=== PATIENT | female | born 1955 | race Caucasian/White ===

== ENCOUNTER 2017-06-14 23:33 | Emergency (ER) | payer BC ==
[2017-06-14 23:45] VITALS: BP 151/99
--- NOTE | 2017-06-15 01:25 | EDM.PDOC ---
ED HPI GENERAL MEDICAL PROBLEM - General Chief Complaint: General Stated Complaint: WANTS PICK LINE CHECKED OUT Time Seen by Provider: 06/14/17 23:45 - History of Present Illness INITIAL COMMENTS - FREE TEXT/NARRATIVE: 8-year-old female presents emergency room to have her PICC line evaluated. The patient had her last infusion around 8:00 this evening and noticed swelling at the port site. She does not have discomfort in the area no pain she has not noticed any fevers or chills. She does notice a sense of fullness in the area and looks to be swollen compared to the other side. Earlier today the patient's PICC line was manipulated in some way of lab today had difficulty withdrawing blood from it. However it seemed to confuse well. This PICC line is been in for 3 weeks perhaps a little longer the patient recently had back surgery complicated with infection and she's getting daily Cubicin therapy. - Related Data Allergies Allergy/AdvReac Type Severity Reaction Status Date / Time codeine Allergy Shortness Verified 05/31/17 13:14 of Breath morphine Allergy Tachycardia Verified 05/31/17 13:14 naproxen [From Aleve] Allergy Cannot Verified 05/31/17 13:14 Remember Sulfa (Sulfonamide Allergy Cannot Verified 05/31/17 13:14 Antibiotics) Remember Home Meds: Home Meds Hydrochlorothiazide [Hydrochlorothiazide] 1 tab PO DAILY 05/31/17 [History] Hydrocodone/Acetaminophen [Hydrocodon-Acetaminophen 5-325] 1 tab PO ASDIRECTED PRN 05/31/17 [History] Levothyroxine [Levothyroxine] 150 mcg PO DAILY 05/31/17 [History] DAPTOmycin [Cubicin] 500 mg IV Q24H 06/14/17 [History] Losartan [Cozaar] 50 mg PO DAILY 06/14/17 [History] Past Medical History HEENT History: Reports: Impaired Vision 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 , , Spontaneous Musculoskeletal History: Reports: RA Endocrine/Metabolic History: Reports: Hypothyroidism, Obesity/BMI 30+ - Past Surgical History GI Surgical History: Reports: Appendectomy, Cholecystectomy Female Surgical History: Reports: Section, Hysterectomy, Tubal Ligation Social & Family History - Family History Family Medical History: Noncontributory - Tobacco Use Smoking Status *Q: Never Smoker - Caffeine Use Caffeine Use: Reports: Coffee - Recreational Drug Use Recreational Drug Use: No ED ROS GENERAL - Review of Systems Review Of Systems: See Below Constitutional: Reports: No Symptoms HEENT: Reports: No Symptoms Respiratory: Reports: No Symptoms Cardiovascular: Reports: No Symptoms GI/Abdominal: Reports: No Symptoms ED EXAM, GENERAL - Physical Exam Exam: See Below Exam Limited By: No Limitations General Appearance: Alert, No Apparent Distress Respiratory/Chest: No Respiratory Distress, Lungs Clear, Normal Breath Sounds Cardiovascular: Regular Rate, Rhythm, No Edema, No Murmur Extremities: Other (Examination of the PICC line site shows no erythema or warmth however she does have some swelling compared to the other side) Course - Vital Signs Last Recorded V/S: Last Vital Signs Temp 36.3 C 06/14/17 23:42 Pulse 82 06/14/17 23:42 Resp 18 06/14/17 23:42 BP 151/99 H 06/14/17 23:42 Pulse Ox 99 06/14/17 23:42 - Re-Assessments/Exams Free Text/Narrative Re-Assessment/Exam: 06/15/17 01:23 This overall situation seems a little unusual. Apparently the PICC clean may have been withdrawn several millimeters much less than a quarter of an inch while they attempted to drop blood out of it. This does not seem like enough motion to dislodge anything. We don't have the resources or the staff to investigate at this point I did discuss it with the warehouse laborer at [facility] where the catheter was put in and ultimately discussed with the ER physician. Their recommendation is discuss it with an interventional radiology first thing in the morning before the catheter seized again. We will do this I have discussed this with the patient and she is okay with this. Departure - Departure Time of Disposition: 01:25 Disposition: Home, Self-Care 01 Clinical Impression: PICC line infiltration - Discharge Information Referrals: Anne Allen, NOTE TELLER [Primary Care Provider] - Additional Instructions: Return to the emergency room with any questions or problems. You should hear from me before 7 AM after have a chance to discuss this with interventional radiology at [facility] in [place]. Do not use the PICC line until you hear back from me or this issue has been resolved.
== END 2017-06-15 01:30 | disposition home or self-care (01) ==
LOC: JD.ED 23:33
DX: T82.49XA Other complication of vascular dialysis catheter, initial encounter (principal); E03.9 Hypothyroidism, unspecified; E66.9 Obesity, unspecified; Z88.5 Allergy status to narcotic agent; Z88.2 Allergy status to sulfonamides; Z79.899 Other long term (current) drug therapy; Z90.49 Acquired absence of other specified parts of digestive tract; Z90.710 Acquired absence of both cervix and uterus; Z68.39 Body mass index [BMI] 39.0-39.9, adult; Z45.2 Encounter for adjustment and management of vascular access device
CPT/HCPCS: 71010; 71010-26; 99283; 99284

== ENCOUNTER 2018-02-23 11:24 | Emergency (ER) | payer BC ==
[2018-02-23 11:34] VITALS: BP 153/79
[2018-02-23] MEDS ORDERED: Sodium Chloride 0.9% 10 ML Syringe FLUSH PRN (11:55)
--- NOTE | 2018-02-23 12:03 | EDM.PDOC ---
ED HPI GENERAL MEDICAL PROBLEM - General Chief Complaint: Lower Extremity Injury/Pain Stated Complaint: RIGHT LEG PAIN/SWELLING Time Seen by Provider: 02/23/18 11:46 Source of Information: Reports: Patient History Limitations: Reports: No Limitations - History of Present Illness INITIAL COMMENTS - FREE TEXT/NARRATIVE: Patient is a 62 female who presents to the ED complaining of right lower leg pain with increased redness, mild swelling, and increased warmth. Patient states symptoms started approximately 2 weeks ago and has progressively gotten worse. States as recent developed pain posteriorly which is abnormal. She does have a history lymphedema secondary to knee injury requiring multiple surgeries. She has had surgery on the right ankle and foot as well. She has had total knee replacement as well as fusion of the ankle and foot. She is concerned she may have cellulitis and also possible DVT. She has a history of blood clot to the left upper extremity in 1997 from a bug bite. This required multiple surgeries. She was on Coumadin for a period of time. she felt slightly feverish. There's been no documented fever. She denies any nausea vomiting, fever, redness streaking up her leg, chest pain, shortness of breath, sensory changes, abdominal pain, or inability to walk in the affected extremity. Right Lower Leg Pain Score (Numeric/FACES): 2 - Related Data Allergies Allergy/AdvReac Type Severity Reaction Status Date / Time codeine Allergy Shortness Verified 05/31/17 13:14 of Breath morphine Allergy Tachycardia Verified 05/31/17 13:14 naproxen [From Aleve] Allergy Cannot Verified 05/31/17 13:14 Remember Sulfa (Sulfonamide Allergy Cannot Verified 05/31/17 13:14 Antibiotics) Remember Home Meds: Home Meds Hydrochlorothiazide 1 tab PO DAILY 05/31/17 [History] Levothyroxine 125 mcg PO DAILY 05/31/17 [History] Losartan [Cozaar] 50 mg PO DAILY 06/14/17 [History] Etanercept [Enbrel] 50 mg PO WEEKLY 02/23/18 [History] Leflunomide 20 mg PO ASDIRECTED 02/23/18 [History] Past Medical History HEENT History: Reports: Impaired Vision Cardiovascular History: Reports: Blood Clots/VTE/DVT, Hypertension 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 , , Spontaneous Musculoskeletal History: Reports: RA Endocrine/Metabolic History: Reports: Hypothyroidism, Obesity/BMI 30+ Dermatologic History: Reports: Other (See Below) Other Dermatologic History: lymphedema RLE - Past Surgical History GI Surgical History: Reports: Appendectomy, Cholecystectomy Female Surgical History: Reports: Section, Hysterectomy, Tubal Ligation Social & Family History - Family History Family Medical History: Noncontributory - Tobacco Use Smoking Status *Q: Never Smoker - Caffeine Use Caffeine Use: Reports: Coffee - Recreational Drug Use Recreational Drug Use: No Review of Systems - Review of Systems Review Of Systems: ROS reveals no pertinent complaints other than HPI. ED EXAM, GENERAL - Physical Exam Exam: See Below Exam Limited By: No Limitations General Appearance: Alert, WD/WN, No Apparent Distress Ears: Hearing Grossly Normal Nose: Normal Inspection Throat/Mouth: Normal Voice, No Airway Compromise Neck: Normal Inspection, Supple Respiratory/Chest: No Respiratory Distress, Lungs Clear, Normal Breath Sounds, No Accessory Muscle Use, Chest Non-Tender Cardiovascular: Normal Peripheral Pulses, Regular Rate, Rhythm, No Murmur ( Obvious) Peripheral Pulses: 2+: Posterior Tibial (R) GI/Abdominal: Normal Bowel Sounds, Soft, Non-Tender, No Organomegaly, No Distention Extremities: Other (With edema noted to the right lower leg with multiple old surgical scars to the right knee and right ankle. Swelling to the patient is unchanged. Small little wounds to the anterior aspect of the leg with redness extending anterior lateral/medial and posteriorly. Pain with palpation of the posterior aspect of the lower leg. Increased warmth noted. No palpable cord noted.) Neurological: Alert, Oriented, CN II-XII Intact, Normal Cognition, No Motor/ Sensory Deficits Psychiatric: Normal Affect, Normal Mood Course - Vital Signs Last Recorded V/S: Last Vital Signs Temp 98.0 F 02/23/18 11:30 Pulse 104 H 02/23/18 11:30 Resp 16 02/23/18 11:30 BP 153/79 H 02/23/18 11:30 Pulse Ox 97 02/23/18 11:30 - Orders/Labs/Meds Orders: Active Orders 24 hr Category Date Time Status Peripheral IV Care [RC] . DIRECTED Care 02/23/18 11:55 Active Peripheral IV Insertion Adult [OM.PC] Routine Oth 02/23/18 11:55 Ordered Labs: Laboratory Tests 05/27/18 05/27/18 Range/Units 12:20 12:20 WBC 5.83 (3.98-10.04) K/mm3 RBC 4.71 (3.98-5.22) M/mm3 Hgb 13.6 (11.2-15.7) gm/L Hct 41.8 (34.1-44.9) % MCV 88.7 (79.4-94.8) fl MCH 28.9 (25.6-32.2) pg MCHC 32.5 (32.2-35.5) g/dl RDW Std Deviation 47.6 H (36.4-46.3) fL Plt Count 286 (182-369) K/mm3 MPV 10.3 (9.4-12.3) fl Neutrophils % (Manual) 53 (40-60) % Band Neutrophils % 0 (0-10) % Lymphocytes % (Manual) 29 (20-40) % Atypical Lymphs % 0 % Monocytes % (Manual) 13 H (2-10) % Eosinophils % (Manual) 4 (0.7-5.8) % Basophils % (Manual) 1 (0.1-1.2) Platelet Estimate Adequate Plt Morphology Comment Normal RBC Morph Comment Normal Sodium 145 (136-145) mEq/L Potassium 3.4 L (3.5-5.1) mEq/L Chloride 106 (98-107) mEq/L Carbon Dioxide 27 (21-32) mEq/L Anion Gap 15.4 H (5-15) BUN 11 (7-18) mg/dL Creatinine 0.8 (0.55-1.02) mg/dL Est Cr Clr Drug Dosing 59.15 mL/min Estimated GFR (MDRD) > 60 (>60) mL/min BUN/Creatinine Ratio 13.8 L (14-18) Glucose 104 (74-106) mg/dL Calcium 9.9 (8.5-10.1) mg/dL Total Bilirubin 0.5 (0.2-1.0) mg/dL AST 47 H (15-37) U/L ALT 67 H (14-59) U/L Alkaline Phosphatase 127 H (46-116) U/L C-Reactive Protein 4.9 H* (<1.0) mg/dL Total Protein 7.2 (6.4-8.2) g/dl Albumin 3.6 (3.4-5.0) g/dl Globulin 3.6 gm/dL Albumin/Globulin Ratio 1.0 (1-2) Meds: Medications Discontinued Medications Generic Name Dose Route Start Last Admin Trade Name Rafael PRN Reason Stop Dose Admin Cefazolin Sodium 1 gm 02/23/18 13:29 02/23/18 13:39 Ancef IM 02/23/18 13:30 1 gm ONETIME ONE Administration Cephalexin 500 mg 02/23/18 13:29 02/23/18 13:39 Keflex PO 02/23/18 13:30 500 mg ONETIME ONE Administration Sodium Chloride 10 ml 02/23/18 11:55 02/23/18 12:06 Saline Flush FLUSH 0.01 ml ASDIRECTED PRN Administration Keep Vein Open - Re-Assessments/Exams Free Text/Narrative Re-Assessment/Exam: Vital signs stable. IV established. Initial labs and studies include CBC, chem 14, CRP, and coag studies. Will order ultrasound of the right lower leg. Labs reviewed: Sodium 145, potassium mildly low at 3.4, creatinine 0.8, AST 47, ALT 67, alk phosphatase 127, CRP is 4.9, CBC essentially normal. Ultrasound of the right lower extremity impression: Normal right lower extremity duplex venous ultrasound. Patient has no history of MRSA and/or recurrent skin infections. Ordered Ancef 1 g IM and keflex 500mg PO. We'll discharge patient on Keflex. Cause of localized skin infection is related to excessive scratching of the lower extremity. She was instructed not do this. She has history of RA and is on two DMARD medications. Increasing risk developing worsening symptoms. At this point do not believe she requires admission with normal CBC and afrebrile with admission. Discharge instructions as documented. The patient remained hemodynamically stable while under my care in the E.D. I discussed the concerning symptoms for which to returnto the E.D. with the patient/family. The patient/family verbalized understanding. All questions were answered. Departure - Departure Time of Disposition: 13:27 Disposition: Home, Self-Care 01 Condition: Good Clinical Impression: Cellulitis of right lower extremity, Hypokalemia, Elevated LFTs - Discharge Information Instructions: Cellulitis, Adult, Liver Function Tests, Hypokalemia, Potassium Content of Foods Referrals: Anne Allen TRANSLATIONAL SPECIALIST [Primary Care Provider] - Forms: ED Department Discharge Additional Instructions: Take the full course of Keflex as prescribed. Elevate when able to reduce any swelling. Apply warm compresses to the affected area as needed. May take Tylenol and ibuprofen as needed for discomfort. Please follow up with her primary care provider this coming week for reevaluation. Refrain from scratching the affected area causing increased risk of developing infection. Liver enzyme tests were mildly elevated along with potassium is mildly low. Please follow up with your primary care provider to discuss retesting of labs. Follow the instructions for potassium replacement via foods and or liquids. - My Orders Last 24 Hours: My Active Orders 02/23/18 11:55 Peripheral IV Care [RC] . DIRECTED Peripheral IV Insertion Adult [OM.PC] Routine - Assessment/Plan Last 24 Hours: My Active Orders 02/23/18 11:55 Peripheral IV Care [RC] . DIRECTED Peripheral IV Insertion Adult [OM.PC] Routine
[2018-02-23] MEDS ORDERED: Cephalexin 500 MG Cap PO ONE (13:29)
[2018-02-23] MEDS ORDERED: ceFAZolin 1 GM Vial IM ONE (13:29)
--- NOTE | 2018-02-24 08:35 | US ---
Right lower extremity deep venous ultrasound: Duplex and color flow imaging was obtained of the right common femoral, superficial femoral, popliteal, posterior tibial and peroneal veins. Left common femoral vein was also evaluated. Comparison: No prior venous exam. Findings: Soft tissue edema seen within the right calf. Normal phasic flow, augmentation and compression are seen. Impression: 1. Soft tissue edema within the calf. 2. No evidence of deep venous thrombosis is seen within the right lower extremity or within the left common femoral vein. Diagnostic code #2 I agree with preliminary report issued by [facility] ([facility] preliminary report dictated on 02/23/18, 2:07 PM Central Time)
== END 2018-02-23 13:45 | disposition home or self-care (01) ==
LOC: JD.ED 11:24
DX: L03.115 Cellulitis of right lower limb (principal); I10 Essential (primary) hypertension; R79.89 Other specified abnormal findings of blood chemistry; E03.9 Hypothyroidism, unspecified; E66.9 Obesity, unspecified; Z90.49 Acquired absence of other specified parts of digestive tract; E87.6 Hypokalemia; Z88.5 Allergy status to narcotic agent; Z88.2 Allergy status to sulfonamides; Z79.899 Other long term (current) drug therapy; Z68.41 Body mass index [BMI] 40.0-44.9, adult
CPT/HCPCS: 36415; 80053; 85007; 85027; 86140; 93971; 96372; 99284; A9270; J0690; J7050

== ENCOUNTER → 2023-05-23 | Day surgery (SDC) | payer MEDICARE, BC ==
[~2023-05-23] MED LIST: Lactated Ringers 1,000 ML IV SCH; Lidocaine 1% 6 ML ONE; Propofol 200 MG/20 ML SDV ONE; Sodium Chloride 0.9% 10 ML Syringe FLUSH PRN; Sodium Chloride 0.9% 10 ML Syringe FLUSH SCH; fentaNYL 100 MCG/2 ML SDV ONE
[2023-05-23 14:05] VITALS: BP 113/68; PULSE 68
== END | disposition home or self-care (01) ==
LOC: JD.SDS 09:51
PROVIDERS: ATTEND Surgery
DX: K59.00 Constipation, unspecified (principal); T50.995A Adverse effect of other drugs, medicaments and biological substances, initial encounter; Q43.8 Other specified congenital malformations of intestine; I10 Essential (primary) hypertension; E03.9 Hypothyroidism, unspecified; M06.9 Rheumatoid arthritis, unspecified; Z88.5 Allergy status to narcotic agent; Z88.2 Allergy status to sulfonamides; Z88.8 Allergy status to other drugs, medicaments and biological substances; Z80.0 Family history of malignant neoplasm of digestive organs; Z79.82 Long term (current) use of aspirin; Z79.890 Hormone replacement therapy; Z79.899 Other long term (current) drug therapy
CPT/HCPCS: 45378; J2704; J3010; J7120; 00812; J3490

== ENCOUNTER 2023-09-28 00:03 | Emergency (ER) | payer MEDICARE, BC ==
[2023-09-28 00:18] VITALS: BP 155/94; PULSE 97
[2023-09-28] MEDS ORDERED: Orphenadrine 60 MG/2 ML Inj IM ONE (02:05)
[2023-09-28] MEDS ORDERED: Ketorolac 30 MG/ML SDV IM ONE (02:05)
[2023-09-28] MEDS ORDERED: Acetaminophen 325 MG Tab PO ONE (02:05)
[2023-09-28] MEDS ORDERED: Sodium Chloride 0.9% 10 ML Syringe FLUSH PRN (03:05)
[2023-09-28 03:36] LABS: BASOPHILS ABSOLUTE AUTO 0.1 K/mm3 (0.0-0.2); BASOPHILS PERCENT AUTO 1.7 % (0.0-1.0); EOSINOPHILS ABSOLUTE AUTO 0.1 K/mm3 (0.0-0.4); EOSINOPHILS PERCENT AUTO 1.6 % (0.0-6.0); HEMATOCRIT 39.3 % (37.0-47.0); HEMOGLOBIN 13.5 gm/dl (12.0-16.0); IMMATURE GRAN ABSOLUTE AUTO 0.02 K/mm3 (0.00-0.05); IMMATURE GRAN PERCENT AUTO 0.3 % (0.0-0.4); LYMPHOCYTES ABSOLUTE AUTO 2.1 K/mm3 (1.0-4.8); LYMPHOCYTES PERCENT AUTO 27.4 % (24.0-44.0); MEAN CORPUSCULAR HEMOGLOBIN 30.3 pg (28.0-32.0); MEAN CORPUSCULAR HGB CONC 34.4 g/dl (32.0-36.0); MEAN CORPUSCULAR VOLUME 88.3 fl (83.0-99.0); MEAN PLATELET VOLUME 10.1 fl (9.4-12.3); MONOCYTES ABSOLUTE AUTO 0.8 K/mm3 (0.0-0.8); MONOCYTES PERCENT AUTO 10.2 % (0.0-8.0); NEUTROPHILS ABSOLUTE AUTO 4.5 K/mm3 (1.8-7.7); NEUTROPHILS PERCENT AUTO 58.8 % (41.0-71.0); PLATELET COUNT,PLT 332 K/mm3 (150-400); RED BLOOD CELL COUNT 4.45 M/mm3 (4.10-5.30); WHITE BLOOD CELL COUNT,WBC 7.66 K/mm3 (3.9-11.3)
[2023-09-28 04:02] LABS: ALANINE AMINOTRANSFERASE,ALT 33 U/L (14-59); ALBUMIN 3.5 g/dl (3.4-5.0); ALKALINE PHOSPHATASE 99 U/L (46-116); ANION GAP 13.8 (5-15); BILIRUBIN TOTAL 0.7 mg/dL (0.2-1.0); BLOOD UREA NITROGEN,BUN 15 mg/dL (7-18); BUN/CREATININE RATIO 16.7 (14-18); CALCIUM 10.5 mg/dL (8.5-10.1); CARBON DIOXIDE,CO2 24 mEq/L (21-32); CHLORIDE,CL 103 mEq/L (98-107); CREATININE 0.9 mg/dL (0.55-1.02); ESTIMATED GFR 71 mL/min (>60); GLUCOSE RANDOM 118 mg/dL (70-99); PROTEIN TOTAL,TP 7.1 g/dl (6.4-8.2); SODIUM,NA 137 mEq/L (136-145); TROPONIN I HIGH SENSITIVITY 8 pg/mL (<=51)
[2023-09-28 04:05] LABS: ASPARTATE AMNIOTRANSFERASE,AST 37 U/L (15-37); POTASSIUM,K 3.8 mEq/L (3.5-5.1)
[2023-09-28] MEDS ORDERED: LORazepam 2 MG/ML SDV IVPUSH ONE (04:32)
[2023-09-28] MEDS ORDERED: traMADol 50 MG Tab PO ONE (04:32)
== END 2023-09-28 05:33 | disposition home or self-care (01) ==
LOC: JD.ED 00:03
DX: M25.512 Pain in left shoulder (principal); I10 Essential (primary) hypertension; E03.9 Hypothyroidism, unspecified; Z79.82 Long term (current) use of aspirin; Z88.2 Allergy status to sulfonamides; Z88.5 Allergy status to narcotic agent; Z88.6 Allergy status to analgesic agent; Z79.899 Other long term (current) drug therapy; Z90.49 Acquired absence of other specified parts of digestive tract; Z90.710 Acquired absence of both cervix and uterus
CPT/HCPCS: 36415; 71045; 80053; 84484; 85025; 85379; 93005; 96372; 96374; 99284; A9270; J1885; J2060; J2360

== ENCOUNTER 2023-10-01 09:16 | Emergency (ER) | payer MEDICARE, BC ==
[2023-10-01] MEDS ORDERED: HYDROmorphone 1 MG/ML Syringe IVPUSH ONE (10:08)
[2023-10-01] MEDS ORDERED: Metoclopramide 10 MG/2 ML SDV IVPUSH ONE ×2 (10:08→15:40)
[2023-10-01] MEDS ORDERED: Dexamethasone 10 MG/ML SDV IVPUSH ONE (10:09)
[2023-10-01] MEDS ORDERED: Gabapentin 100 MG Cap PO ONE (10:09)
[2023-10-01] MEDS ORDERED: Dextrose 5%-0.9% NaCl 1,000 ML IV SCH (10:15)
[2023-10-01] MEDS ORDERED: HYDROmorphone 0.5 MG/0.5 ML Syringe IVPUSH ONE ×3 (11:02→15:39)
[2023-10-01 16:59] VITALS: BP 156/91; PULSE 76
== END 2023-10-01 16:56 | disposition home or self-care (01) ==
LOC: JD.ED 09:16
DX: M50.122 Cervical disc disorder at C5-C6 level with radiculopathy (principal); E03.9 Hypothyroidism, unspecified; E66.9 Obesity, unspecified; I10 Essential (primary) hypertension; M19.90 Unspecified osteoarthritis, unspecified site; Z79.82 Long term (current) use of aspirin; Z79.899 Other long term (current) drug therapy; Z88.5 Allergy status to narcotic agent; Z88.2 Allergy status to sulfonamides; Z88.8 Allergy status to other drugs, medicaments and biological substances
CPT/HCPCS: 72141; 96361; 96374; 96375; 96376; 99283; A9270; J1100; J1170; J2765; J7042

== ENCOUNTER 2024-11-18 07:34 | Day surgery (SDC) | payer MEDICARE, BC ==
[~2024-11-18 07:34] MED LIST changes: -Lactated Ringers 1,000 ML IV SCH; -Lidocaine 1% 6 ML ONE; -Propofol 200 MG/20 ML SDV ONE; +Tranexamic Acid 1,000 MG/10 ML Vial ONE; +VANCOmycin 1 GM SDV ONE; -fentaNYL 100 MCG/2 ML SDV ONE
[2024-11-18] MEDS: Lactated Ringers 1,000 ML IV SCH (07:45)
[2024-11-18] MEDS: Acetaminophen 325 MG Tab PO ONE ×2 (09:00→15:16)
[2024-11-18] MEDS: Pregabalin 25 MG Cap PO ONE (09:00)
[2024-11-18] MEDS: oxyCODONE ER 10 MG TAB.ER PO ONE (09:01)
[2024-11-18] MEDS ORDERED: Propofol 200 MG/20 ML SDV ONE ×3 (09:12→10:27)
[2024-11-18] MEDS ORDERED: fentaNYL 100 MCG/2 ML SDV ONE (09:13)
[2024-11-18] MEDS ORDERED: ceFAZolin 2 GM Vial ONE (09:14)
[2024-11-18] MEDS: Tranexamic Acid 1,000 MG/10 ML Vial ONE (10:44)
[2024-11-18] MEDS: VANCOmycin 1 GM SDV ONE (10:44)
[2024-11-18] MEDS: Morphine 8 MG, EPINEPHrine 0.3 MG, Cefuroxime 750 MG, Sodium Chloride 0.9% 7.9 ML PRN (10:45)
[2024-11-18] MEDS ORDERED: fentaNYL 100 MCG/2 ML SDV IVPUSH PRN (11:16)
[2024-11-18] MEDS: oxyCODONE 5 MG Tab PO PRN (13:28)
[2024-11-18 13:32] VITALS: BP 128/82; PULSE 78
[2024-11-18] MEDS: Ondansetron 4 MG/2 ML SDV IVPUSH PRN (14:17)
[2024-11-18] MEDS: HYDROmorphone 0.5 MG/0.5 ML Syringe IVPUSH PRN (15:25)
== END 2024-11-18 16:15 | disposition home or self-care (01) ==
LOC: JD.SDS 07:34
PROVIDERS: ATTEND Orthopaedic Surgery
DX: M16.11 Unilateral primary osteoarthritis, right hip (principal); I10 Essential (primary) hypertension; E03.9 Hypothyroidism, unspecified; Z88.8 Allergy status to other drugs, medicaments and biological substances; Z88.5 Allergy status to narcotic agent; Z88.2 Allergy status to sulfonamides; Z91.030 Bee allergy status; Z79.82 Long term (current) use of aspirin; Z79.899 Other long term (current) drug therapy; Z79.890 Hormone replacement therapy
CPT/HCPCS: 0055T; 27130; 73501; 97116; 97161; 97530; A9270; C1713; C1776; J0171; J0690; J0697; J2272; J2405; J2704; J3010; J7120; J3490

== ENCOUNTER 2025-01-01 09:23 | Inpatient (IN) | payer MEDICARE, BC ==
[2025-01-01] MEDS: fentaNYL 100 MCG/2 ML SDV IVPUSH ONE ×2 (11:22→11:53)
[2025-01-01] MEDS: fentaNYL 100 MCG/2 ML SDV ONE (11:31)
[2025-01-01] MEDS: Iopamidol 612 MG/ML 100 ML Bottle IVPUSH ONE (11:40)
[2025-01-01] MEDS: Sodium Chloride 0.9% 10 ML Syringe FLUSH ONE (11:40)
[2025-01-01] MEDS ORDERED: Naloxone 0.4 MG/ML SDV IVPUSH PRN ×2 (11:49→13:01)
[2025-01-01 12:39] LABS: BASOPHILS ABSOLUTE AUTO 0.1 K/mm3 (0.0-0.2); HEMATOCRIT 36.3 % (37.0-47.0); HEMOGLOBIN 12.1 gm/dl (12.0-16.0); IMMATURE GRAN ABSOLUTE AUTO 0.05 K/mm3 (0.00-0.05); LYMPHOCYTES ABSOLUTE AUTO 1.2 K/mm3 (1.0-4.8); MEAN CORPUSCULAR HEMOGLOBIN 29.4 pg (28.0-32.0); MEAN CORPUSCULAR HGB CONC 33.3 g/dl (32.0-36.0); MEAN CORPUSCULAR VOLUME 88.3 fl (83.0-99.0); MONOCYTES ABSOLUTE AUTO 1.4 K/mm3 (0.0-0.8); PLATELET COUNT,PLT 253 K/mm3 (150-400); RED BLOOD CELL COUNT 4.11 M/mm3 (4.10-5.30); WHITE BLOOD CELL COUNT,WBC 14.47 K/mm3 (3.9-11.3)
[2025-01-01 13:07] LABS: A/G RATIO 0.9 (1-2); ALBUMIN 2.8 g/dl (3.4-5.0); ANION GAP 14.1 (5-15); BILIRUBIN TOTAL 1.4 mg/dL (0.2-1.0); BUN/CREATININE RATIO 15.6 (14-18); C-REACTIVE PROTEIN 17.93 mg/dL (<0.30); CALCIUM 8.9 mg/dL (8.5-10.1); CREATININE 0.9 mg/dL (0.55-1.02); EST CRCL DRUG DOSING (CG) 47.97 mL/min; POTASSIUM,K 3.1 mEq/L (3.5-5.1); PROTEIN TOTAL,TP 6.1 g/dl (6.4-8.2)
[2025-01-01] MEDS: HYDROmorphone 0.5 MG/0.5 ML Syringe IVPUSH ONE ×2 (13:08→17:01)
[2025-01-01] MEDS: Sodium Chloride 0.9% 1,000 ML IV SCH (13:08)
[2025-01-01 13:10] LABS: LACTIC ACID 1.8 mmol/L (0.4-2.0)
[2025-01-01 13:30] LABS: EOSINOPHILS PERCENT AUTO 0.9 % (0.0-6.0); LYMPHOCYTES PERCENT AUTO 7.7 % (24.0-44.0); MONOCYTES PERCENT AUTO 9.7 % (0.0-8.0); NEUTROPHILS PERCENT AUTO 80.4 % (41.0-71.0)
[2025-01-01 13:31] LABS: BASOPHILS PERCENT AUTO 0.7 % (0.0-1.0); IMMATURE GRAN PERCENT AUTO 0.6 % (0.0-0.4)
[2025-01-01 13:32] LABS: NEUTROPHILS ABSOLUTE AUTO 11.7 K/mm3 (1.8-7.7)
[2025-01-01 13:33] LABS: EOSINOPHILS ABSOLUTE AUTO 0.1 K/mm3 (0.0-0.4); SLIDE REVIEW NORMAL SMEAR
[2025-01-01 14:58] LABS: BODY FLUID TYPE SYNOVIAL FLUID; PROTEIN,BODY FLUID 3.4 gm/dl
[2025-01-01 15:50] LABS: APPEARANCE,URINE CLEAR (Clear); BILIRUBIN,URINE 1+ (Negative); COLOR,URINE AMBER (Yellow); GLUCOSE,URINE NEGATIVE (Negative); KETONES,URINE 3+ (Negative); LEUKOCYTE ESTERASE,URINE NEGATIVE (Negative); NITRITE,URINE NEGATIVE (Negative); OCCULT BLOOD,URINE NEGATIVE (Negative); PROTEIN,URINE 2+ (Negative); UROBILINOGEN,URINE 0.2 (0.2-1.0)
[2025-01-01 16:09] LABS: RBC,URINE 0-5 /hpf (0-5); SQUAMOUS EPITHELIAL CELLS,UR 0-5 /hpf (0-5); WBC,URINE 0-5 /hpf (0-5)
[2025-01-01 16:10] LABS: BACTERIA,URINE FEW /hpf (FEW); MUCUS,URINE FEW /hpf (FEW)
[2025-01-01] MEDS: oxyCODONE 5 MG Tab PO PRN ×2 (16:10→22:18)
[2025-01-01 16:28] LABS: APPEARANCE,BODY FLUID CLOUDY; COLOR,BODY FLUID AMBER; SITE,BODY FLUID LEFT HIP; VOLUME BODY FLUID 20 ML
[2025-01-01 16:30] LABS: MONONUCLEAR, BODY FLUID 21.9 % (0.0-0.0)
[2025-01-01 16:31] LABS: POLYMORPHONUCLEAR, BODY FLUID 78.1 % (0.0-0.0)
[2025-01-01] MEDS: HYDROmorphone 0.5 MG/0.5 ML Syringe IVPUSH PRN (16:40)
[2025-01-01 16:44] LABS: WBC BODY FLUID 13220 /uL (0-0)
[2025-01-01 16:45] LABS: RBC,BODY FLUID 14000 /uL (0-0)
[2025-01-01] MEDS: Potassium Chloride 20 MEQ Tab.ER PO ONE (18:01)
[2025-01-01] MEDS: predniSONE 10 MG Tab PO ONE (18:02)
[2025-01-01] MEDS: cefTRIAXone 2 GM Vial IVPUSH SCH (18:02)
[2025-01-01] MEDS: Gabapentin 300 MG Cap PO SCH (22:19)
[2025-01-02] MEDS: Pantoprazole 40 MG Tab.CR PO SCH (04:25)
[2025-01-02] MEDS: Sennosides/Docusate Sodium 50-8.6 MG Tab PO PRN (04:25)
[2025-01-02 05:37] LABS: BASOPHILS ABSOLUTE AUTO 0.1 K/mm3 (0.0-0.2); BASOPHILS PERCENT AUTO 0.3 % (0.0-1.0); EOSINOPHILS PERCENT AUTO 0.1 % (0.0-6.0); HEMATOCRIT 32.4 % (37.0-47.0); HEMOGLOBIN 10.8 gm/dl (12.0-16.0); IMMATURE GRAN ABSOLUTE AUTO 0.15 K/mm3 (0.00-0.05); IMMATURE GRAN PERCENT AUTO 0.9 % (0.0-0.4); LYMPHOCYTES ABSOLUTE AUTO 0.7 K/mm3 (1.0-4.8); MEAN CORPUSCULAR HEMOGLOBIN 29.5 pg (28.0-32.0); MEAN CORPUSCULAR HGB CONC 33.3 g/dl (32.0-36.0); MEAN CORPUSCULAR VOLUME 88.5 fl (83.0-99.0); MEAN PLATELET VOLUME 10.1 fl (9.4-12.3); MONOCYTES PERCENT AUTO 5.9 % (0.0-8.0); NEUTROPHILS ABSOLUTE AUTO 15.1 K/mm3 (1.8-7.7); NEUTROPHILS PERCENT AUTO 88.8 % (41.0-71.0); PLATELET COUNT,PLT 214 K/mm3 (150-400); RED BLOOD CELL COUNT 3.66 M/mm3 (4.10-5.30); WHITE BLOOD CELL COUNT,WBC 17.03 K/mm3 (3.9-11.3)
[2025-01-02 06:10] LABS: A/G RATIO 0.7 (1-2); ALBUMIN 2.3 g/dl (3.4-5.0); BILIRUBIN TOTAL 1.6 mg/dL (0.2-1.0); BUN/CREATININE RATIO 21.1 (14-18); C-REACTIVE PROTEIN 24.88 mg/dL (<0.30); CREATININE 0.9 mg/dL (0.55-1.02); EST CRCL DRUG DOSING (CG) 47.97 mL/min; MAGNESIUM 1.7 mg/dL (1.8-2.4); PHOSPHORUS 1.8 mg/dL (2.6-4.7); PROTEIN TOTAL,TP 5.8 g/dl (6.4-8.2); TSH 0.545 uIU/mL (0.358-3.74)
[2025-01-02 06:22] LABS: ANION GAP 9.3 (5-15)
[2025-01-02 06:23] LABS: POTASSIUM,K 4.3 mEq/L (3.5-5.1)
[2025-01-02] MEDS: Furosemide 20 MG Tab PO SCH (07:53)
[2025-01-02] MEDS: predniSONE 20 MG Tab PO SCH (07:53)
[2025-01-02] MEDS: Aspirin 81 MG Tab.EC PO SCH (07:53)
[2025-01-02] MEDS: Losartan 100 MG Tab PO SCH (07:53)
[2025-01-02] MEDS: Hydrochlorothiazide 25 MG Tab PO SCH (07:53)
[2025-01-02] MEDS: Levothyroxine 75 MCG Tab PO SCH (07:53)
[2025-01-02] MEDS: Enoxaparin 40 MG/0.4 ML Syringe SUBCUT SCH (07:54)
[2025-01-02] MEDS: Calcium Carbonate 600 MG Tab PO SCH (08:16)
[2025-01-02] MEDS: Magnesium Sulf/Wat 2 GM/50 mL 2 GM/50 ML BAG IV ONE (08:48)
[2025-01-02] MEDS: Hyaluronidase, Human Recomb. 150 Unit/ML Vial SUBCUT ONE (09:50)
[2025-01-02] MEDS: Sodium Phosphate 30 MMOLE in Sodium Chloride 0.9% 250 ML IV ONE ×2 (20:36→20:39)
[2025-01-03 07:57] LABS: BASOPHILS PERCENT AUTO 0.2 % (0.0-1.0); EOSINOPHILS PERCENT AUTO 0.1 % (0.0-6.0); HEMATOCRIT 38.7 % (37.0-47.0); IMMATURE GRAN ABSOLUTE AUTO 0.14 K/mm3 (0.00-0.05); IMMATURE GRAN PERCENT AUTO 0.9 % (0.0-0.4); LYMPHOCYTES ABSOLUTE AUTO 1.1 K/mm3 (1.0-4.8); LYMPHOCYTES PERCENT AUTO 7.2 % (24.0-44.0); MEAN CORPUSCULAR HGB CONC 32.3 g/dl (32.0-36.0); MEAN CORPUSCULAR VOLUME 89.8 fl (83.0-99.0); MEAN PLATELET VOLUME 10.3 fl (9.4-12.3); MONOCYTES ABSOLUTE AUTO 1.9 K/mm3 (0.0-0.8); MONOCYTES PERCENT AUTO 12.3 % (0.0-8.0); NEUTROPHILS PERCENT AUTO 79.3 % (41.0-71.0); RED BLOOD CELL COUNT 4.31 M/mm3 (4.10-5.30)
[2025-01-03 08:21] LABS: ANION GAP 10.8 (5-15); BUN/CREATININE RATIO 28.9 (14-18); C-REACTIVE PROTEIN 18.82 mg/dL (<0.30); CALCIUM 9.9 mg/dL (8.5-10.1); CREATININE 0.9 mg/dL (0.55-1.02); EST CRCL DRUG DOSING (CG) 47.97 mL/min; POTASSIUM,K 3.8 mEq/L (3.5-5.1)
[2025-01-03] MEDS: Sodium Phosphate 30 MMOLE in Sodium Chloride 0.9% 250 ML IV ONE (08:45)
[2025-01-03 08:47] LABS: HEMOGLOBIN 12.5 gm/dl (12.0-16.0)
[2025-01-03 08:48] LABS: PLATELET COUNT,PLT 304 K/mm3 (150-400)
[2025-01-03 08:56] LABS: SLIDE REVIEW ABNORMAL SMEAR
[2025-01-03 09:00] LABS: MAGNESIUM 1.8 mg/dL (1.8-2.4); PHOSPHORUS 1.8 mg/dL (2.6-4.7)
[2025-01-03] MEDS: Heparin Sodium 5,000 Units/ML Vial IVPUSH ONE ×2 (10:39→18:25)
[2025-01-03] MEDS: Heparin Sodium/D5W 250 ML IV SCH (10:41)
[2025-01-03] MEDS ORDERED: VANCOmycin 1.5 GM/300 ML 1.5 GM in Premix Bag 1 BAG IV SCH (12:00)
[2025-01-03] MEDS: Magnesium Sulfat/D5W 1GM/100ML 1 GM in Premix Bag 1 BAG IV ONE ×2 (13:36→13:37)
[2025-01-04 06:05] LABS: BASOPHILS ABSOLUTE AUTO 0.1 K/mm3 (0.0-0.2); BASOPHILS PERCENT AUTO 0.5 % (0.0-1.0); EOSINOPHILS PERCENT AUTO 0.2 % (0.0-6.0); HEMATOCRIT 37.8 % (37.0-47.0); HEMOGLOBIN 12.6 gm/dl (12.0-16.0); IMMATURE GRAN ABSOLUTE AUTO 0.23 K/mm3 (0.00-0.05); LYMPHOCYTES ABSOLUTE AUTO 1.5 K/mm3 (1.0-4.8); LYMPHOCYTES PERCENT AUTO 12.4 % (24.0-44.0); MEAN CORPUSCULAR HEMOGLOBIN 29.7 pg (28.0-32.0); MEAN CORPUSCULAR HGB CONC 33.3 g/dl (32.0-36.0); MEAN CORPUSCULAR VOLUME 89.2 fl (83.0-99.0); MEAN PLATELET VOLUME 10.1 fl (9.4-12.3); MONOCYTES ABSOLUTE AUTO 1.3 K/mm3 (0.0-0.8); MONOCYTES PERCENT AUTO 11.1 % (0.0-8.0); NEUTROPHILS ABSOLUTE AUTO 8.7 K/mm3 (1.8-7.7); NEUTROPHILS PERCENT AUTO 73.8 % (41.0-71.0); PLATELET COUNT,PLT 326 K/mm3 (150-400); RED BLOOD CELL COUNT 4.24 M/mm3 (4.10-5.30); WHITE BLOOD CELL COUNT,WBC 11.73 K/mm3 (3.9-11.3)
[2025-01-04 06:23] LABS: ANION GAP 7.7 (5-15); C-REACTIVE PROTEIN 9.75 mg/dL (<0.30); CREATININE 0.8 mg/dL (0.55-1.02); EST CRCL DRUG DOSING (CG) 53.97 mL/min; MAGNESIUM 1.8 mg/dL (1.8-2.4); POTASSIUM,K 3.7 mEq/L (3.5-5.1)
[2025-01-04] MEDS: Heparin Sodium 5,000 Units/ML Vial IVPUSH ONE ×2 (07:26→19:03)
[2025-01-04] MEDS: Apixaban 5 MG Tab PO SCH (19:59)
[2025-01-05] MEDS: Apixaban 5 MG Tab PO SCH (08:28)
[2025-01-05] MEDS: Cyclobenzaprine 10 MG Tab PO PRN (10:10)
[2025-01-05] MEDS: CERTOLIZUMAB PEGOL 400 MG/2 ML SQ SCH (20:11)
[2025-01-06 04:42] LABS: BASOPHILS ABSOLUTE AUTO 0.2 K/mm3 (0.0-0.2); BASOPHILS PERCENT AUTO 0.9 % (0.0-1.0); EOSINOPHILS ABSOLUTE AUTO 0.2 K/mm3 (0.0-0.4); EOSINOPHILS PERCENT AUTO 1.2 % (0.0-6.0); HEMATOCRIT 35.5 % (37.0-47.0); HEMOGLOBIN 11.7 gm/dl (12.0-16.0); IMMATURE GRAN PERCENT AUTO 12.9 % (0.0-0.4); LYMPHOCYTES ABSOLUTE AUTO 2.7 K/mm3 (1.0-4.8); LYMPHOCYTES PERCENT AUTO 16.7 % (24.0-44.0); MEAN CORPUSCULAR HEMOGLOBIN 29.3 pg (28.0-32.0); MEAN PLATELET VOLUME 10.5 fl (9.4-12.3); MONOCYTES ABSOLUTE AUTO 1.9 K/mm3 (0.0-0.8); MONOCYTES PERCENT AUTO 11.6 % (0.0-8.0); NEUTROPHILS ABSOLUTE AUTO 9.2 K/mm3 (1.8-7.7); NEUTROPHILS PERCENT AUTO 56.7 % (41.0-71.0); NRBC ABSOLUTE 0.02 (0.00-0.02); NRBC PERCENT 0.1 % (0.0-0.2); PLATELET COUNT,PLT 355 K/mm3 (150-400); RED BLOOD CELL COUNT 3.99 M/mm3 (4.10-5.30); WHITE BLOOD CELL COUNT,WBC 16.31 K/mm3 (3.9-11.3)
[2025-01-06 05:09] LABS: A/G RATIO 0.5 (1-2); ANION GAP 6.6 (5-15); BILIRUBIN TOTAL 0.6 mg/dL (0.2-1.0); BUN/CREATININE RATIO 24.3 (14-18); C-REACTIVE PROTEIN 9.23 mg/dL (<0.30); CALCIUM 9.5 mg/dL (8.5-10.1); CREATININE 0.7 mg/dL (0.55-1.02); EST CRCL DRUG DOSING (CG) 61.68 mL/min; MAGNESIUM 1.6 mg/dL (1.8-2.4); PHOSPHORUS 2.9 mg/dL (2.6-4.7); POTASSIUM,K 3.6 mEq/L (3.5-5.1); PROTEIN TOTAL,TP 5.8 g/dl (6.4-8.2)
[2025-01-06 05:53] LABS: SLIDE REVIEW ABNORMAL SMEAR
[2025-01-06] MEDS: Cholecalciferol (Vitamin D3) 5,000 UNIT Cap PO SCH (08:29)
[2025-01-06] MEDS: Diclofenac Sodium 1% Gel 100 GM Tube TOP SCH (12:20)
[2025-01-06] MEDS: Magnesium Sulf/Wat 2 GM/50 mL 2 GM in Premix Bag 1 BAG IV ONE (13:32)
[2025-01-07 04:36] LABS: BASOPHILS ABSOLUTE AUTO 0.2 K/mm3 (0.0-0.2); BASOPHILS PERCENT AUTO 0.9 % (0.0-1.0); EOSINOPHILS ABSOLUTE AUTO 0.3 K/mm3 (0.0-0.4); EOSINOPHILS PERCENT AUTO 1.6 % (0.0-6.0); HEMATOCRIT 33.4 % (37.0-47.0); HEMOGLOBIN 10.8 gm/dl (12.0-16.0); IMMATURE GRAN ABSOLUTE AUTO 2.78 K/mm3 (0.00-0.05); IMMATURE GRAN PERCENT AUTO 16.7 % (0.0-0.4); LYMPHOCYTES PERCENT AUTO 17.9 % (24.0-44.0); MEAN CORPUSCULAR HGB CONC 32.3 g/dl (32.0-36.0); MEAN CORPUSCULAR VOLUME 89.5 fl (83.0-99.0); MEAN PLATELET VOLUME 10.1 fl (9.4-12.3); MONOCYTES ABSOLUTE AUTO 1.6 K/mm3 (0.0-0.8); MONOCYTES PERCENT AUTO 9.5 % (0.0-8.0); NEUTROPHILS ABSOLUTE AUTO 8.9 K/mm3 (1.8-7.7); NEUTROPHILS PERCENT AUTO 53.4 % (41.0-71.0); NRBC ABSOLUTE 0.03 (0.00-0.02); NRBC PERCENT 0.2 % (0.0-0.2); PLATELET COUNT,PLT 389 K/mm3 (150-400); RED BLOOD CELL COUNT 3.73 M/mm3 (4.10-5.30); WHITE BLOOD CELL COUNT,WBC 16.67 K/mm3 (3.9-11.3)
[2025-01-07] MEDS: HYDROmorphone 1 MG/ML Syringe IVPUSH PRN (04:57)
[2025-01-07 05:38] LABS: A/G RATIO 0.5 (1-2); ALBUMIN 1.9 g/dl (3.4-5.0); ANION GAP 7.8 (5-15); BILIRUBIN TOTAL 0.6 mg/dL (0.2-1.0); BUN/CREATININE RATIO 27.1 (14-18); C-REACTIVE PROTEIN 8.68 mg/dL (<0.30); CALCIUM 9.4 mg/dL (8.5-10.1); CREATININE 0.7 mg/dL (0.55-1.02); EST CRCL DRUG DOSING (CG) 61.68 mL/min; MAGNESIUM 1.9 mg/dL (1.8-2.4); POTASSIUM,K 4.8 mEq/L (3.5-5.1); PROTEIN TOTAL,TP 5.6 g/dl (6.4-8.2)
[2025-01-07 06:44] LABS: SLIDE REVIEW ABNORMAL SMEAR
[2025-01-07] MEDS: Calcium Carbonate 500 MG Tab.Chew PO ONE (18:04)
[2025-01-08 04:42] LABS: BASOPHILS ABSOLUTE AUTO 0.1 K/mm3 (0.0-0.2); BASOPHILS PERCENT AUTO 0.4 % (0.0-1.0); EOSINOPHILS ABSOLUTE AUTO 0.6 K/mm3 (0.0-0.4); EOSINOPHILS PERCENT AUTO 3.6 % (0.0-6.0); HEMATOCRIT 37.3 % (37.0-47.0); HEMOGLOBIN 12.1 gm/dl (12.0-16.0); IMMATURE GRAN ABSOLUTE AUTO 3.27 K/mm3 (0.00-0.05); IMMATURE GRAN PERCENT AUTO 19.7 % (0.0-0.4); LYMPHOCYTES ABSOLUTE AUTO 1.8 K/mm3 (1.0-4.8); LYMPHOCYTES PERCENT AUTO 10.8 % (24.0-44.0); MEAN CORPUSCULAR HGB CONC 32.4 g/dl (32.0-36.0); MEAN CORPUSCULAR VOLUME 89.4 fl (83.0-99.0); MEAN PLATELET VOLUME 10.1 fl (9.4-12.3); MONOCYTES ABSOLUTE AUTO 1.4 K/mm3 (0.0-0.8); MONOCYTES PERCENT AUTO 8.1 % (0.0-8.0); NEUTROPHILS ABSOLUTE AUTO 9.5 K/mm3 (1.8-7.7); NEUTROPHILS PERCENT AUTO 57.4 % (41.0-71.0); NRBC ABSOLUTE 0.03 (0.00-0.02); NRBC PERCENT 0.2 % (0.0-0.2); PLATELET COUNT,PLT 482 K/mm3 (150-400); RED BLOOD CELL COUNT 4.17 M/mm3 (4.10-5.30)
[2025-01-08] MEDS: Levothyroxine 75 MCG Tab PO SCH (05:16)
[2025-01-08 05:31] LABS: A/G RATIO 0.6 (1-2); ALBUMIN 2.2 g/dl (3.4-5.0); ANION GAP 9.5 (5-15); BILIRUBIN TOTAL 0.7 mg/dL (0.2-1.0); C-REACTIVE PROTEIN 10.33 mg/dL (<0.30); CALCIUM 9.5 mg/dL (8.5-10.1); EST CRCL DRUG DOSING (CG) 43.18 mL/min; MAGNESIUM 1.7 mg/dL (1.8-2.4); POTASSIUM,K 4.5 mEq/L (3.5-5.1); PROTEIN TOTAL,TP 6.2 g/dl (6.4-8.2)
[2025-01-08 06:46] LABS: SLIDE REVIEW ABNORMAL SMEAR
[2025-01-08] MEDS: Pantoprazole 40 MG Tab.CR PO SCH (08:00)
[2025-01-08] MEDS: Magnesium Oxide 400 MG Tab PO ONE (14:16)
[2025-01-08 14:56] VITALS: BP 131/67; PULSE 91
[2025-01-08] MEDS ORDERED: Cephalexin 500 MG Cap PO SCH (18:00)
[2025-01-09] MEDS ORDERED: Magnesium Oxide 400 MG Tab PO SCH (09:00)
[2025-01-13] MEDS ORDERED: Apixaban 5 MG Tab PO SCH (09:00)
== END 2025-01-08 14:55 | disposition swing bed (61) | DRG 546 ==
LOC: JD.ED 09:23 → JD.MS 13:51
PROVIDERS: ADMIT Orthopaedic Surgery; ATTEND Family Medicine
PROC: 0S993ZZ Drainage of Right Hip Joint, Percutaneous Approach (ICD-10-PCS; principal; 2025-01-01)
DX: M06.9 Rheumatoid arthritis, unspecified (principal); L76.34 Postprocedural seroma of skin and subcutaneous tissue following other procedure; M25.551 Pain in right hip; D72.829 Elevated white blood cell count, unspecified; I82.442 Acute embolism and thrombosis of left tibial vein; H54.7 Unspecified visual loss; I10 Essential (primary) hypertension; M19.90 Unspecified osteoarthritis, unspecified site; E03.9 Hypothyroidism, unspecified; E66.9 Obesity, unspecified; Z96.659 Presence of unspecified artificial knee joint; E87.6 Hypokalemia; E83.42 Hypomagnesemia; Z79.890 Hormone replacement therapy; E83.39 Other disorders of phosphorus metabolism; Z96.641 Presence of right artificial hip joint; R13.10 Dysphagia, unspecified; Z88.8 Allergy status to other drugs, medicaments and biological substances; Z91.030 Bee allergy status; Z88.5 Allergy status to narcotic agent; Z88.2 Allergy status to sulfonamides; Z79.82 Long term (current) use of aspirin; Z79.899 Other long term (current) drug therapy; Z68.36 Body mass index [BMI] 36.0-36.9, adult; Z86.16 Personal history of COVID-19; Z98.51 Tubal ligation status; Z90.89 Acquired absence of other organs; Z90.49 Acquired absence of other specified parts of digestive tract
CPT/HCPCS: 20610; 36415; 74177; 80053; 83605; 84157; 85025; 86140; 87070; 87205; 87428; 89050; 89060; C1758; J3010 ×2; J7030; Q9967; 73502-26-LT; 73502-LT; 73562-26-LT; 73562-LT; 80048; 81001; 83735; 84100; 84443; 84484; 85730; 93005; 93010; 93970; 93970-26; 94761; 97110-GP; 97116-GP; 97162-GP; 97530-GP; 99222; 99231; 99232; 99285; A9270-GY; J0696; J1171; J1644; J1650; J3475; J3490; J7512

== ENCOUNTER 2025-01-08 09:48 | Inpatient (IN) | payer MEDICARE, BC ==
[2025-01-08] MEDS ORDERED: Naloxone 0.4 MG/ML SDV IVPUSH PRN (14:42)
[2025-01-08] MEDS: Gabapentin 300 MG Cap PO SCH (16:25)
[2025-01-08] MEDS: oxyCODONE 5 MG Tab PO PRN (17:35)
[2025-01-08] MEDS: Cephalexin 500 MG Cap PO SCH (17:36)
[2025-01-08] MEDS: Apixaban 5 MG Tab PO SCH (21:52)
[2025-01-08] MEDS: Diclofenac Sodium 1% Gel 100 GM Tube TOP SCH (21:53)
[2025-01-09] MEDS: Levothyroxine 75 MCG Tab PO SCH (05:55)
[2025-01-09] MEDS: Pantoprazole 40 MG Tab.CR PO SCH (09:30)
[2025-01-09] MEDS: Cholecalciferol (Vitamin D3) 5,000 UNIT Cap PO SCH (09:31)
[2025-01-09] MEDS: Magnesium Oxide 400 MG Tab PO SCH (09:31)
[2025-01-09] MEDS: Losartan 100 MG Tab PO SCH (09:31)
[2025-01-09] MEDS: Furosemide 20 MG Tab PO SCH (09:32)
[2025-01-09] MEDS: Aspirin 81 MG Tab.EC PO SCH (09:32)
[2025-01-09] MEDS: Hydrochlorothiazide 25 MG Tab PO SCH (09:32)
[2025-01-09] MEDS: Cyclobenzaprine 10 MG Tab PO PRN (21:17)
[2025-01-10] MEDS: HYDROmorphone 1 MG/ML Syringe IVPUSH PRN (08:17)
[2025-01-10 10:44] LABS: BASOPHILS ABSOLUTE AUTO 0.1 K/mm3 (0.0-0.2); BASOPHILS PERCENT AUTO 0.6 % (0.0-1.0); EOSINOPHILS ABSOLUTE AUTO 0.4 K/mm3 (0.0-0.4); EOSINOPHILS PERCENT AUTO 2.7 % (0.0-6.0); HEMOGLOBIN 11.2 gm/dl (12.0-16.0); IMMATURE GRAN ABSOLUTE AUTO 1.39 K/mm3 (0.00-0.05); IMMATURE GRAN PERCENT AUTO 8.7 % (0.0-0.4); LYMPHOCYTES ABSOLUTE AUTO 1.4 K/mm3 (1.0-4.8); LYMPHOCYTES PERCENT AUTO 8.8 % (24.0-44.0); MEAN CORPUSCULAR HGB CONC 32.9 g/dl (32.0-36.0); MEAN CORPUSCULAR VOLUME 88.1 fl (83.0-99.0); MEAN PLATELET VOLUME 9.2 fl (9.4-12.3); MONOCYTES ABSOLUTE AUTO 1.5 K/mm3 (0.0-0.8); MONOCYTES PERCENT AUTO 9.2 % (0.0-8.0); NEUTROPHILS ABSOLUTE AUTO 11.2 K/mm3 (1.8-7.7); PLATELET COUNT,PLT 531 K/mm3 (150-400); RED BLOOD CELL COUNT 3.86 M/mm3 (4.10-5.30); WHITE BLOOD CELL COUNT,WBC 15.94 K/mm3 (3.9-11.3)
[2025-01-10 11:09] LABS: A/G RATIO 0.5 (1-2); ANION GAP 8.2 (5-15); BILIRUBIN TOTAL 1.4 mg/dL (0.2-1.0); C-REACTIVE PROTEIN 19.9 mg/dL (<0.30); CALCIUM 9.5 mg/dL (8.5-10.1); EST CRCL DRUG DOSING (CG) 43.18 mL/min; POTASSIUM,K 4.2 mEq/L (3.5-5.1); PROTEIN TOTAL,TP 6.4 g/dl (6.4-8.2); URIC ACID 4.4 mg/dL (2.6-6.0)
[2025-01-10 12:06] LABS: SLIDE REVIEW ABNORMAL SMEAR
[2025-01-10 15:10] LABS: BODY FLUID TYPE SYNOVIAL FLUID
[2025-01-10 16:49] LABS: APPEARANCE,BODY FLUID CLOUDY; COLOR,BODY FLUID YELLOW; SITE,BODY FLUID LEFT KNEE; VOLUME BODY FLUID 45 ML
[2025-01-10 16:50] LABS: WBC BODY FLUID 68850 /uL (0-0)
[2025-01-10 16:51] LABS: MONONUCLEAR, BODY FLUID 5.2 % (0.0-0.0); POLYMORPHONUCLEAR, BODY FLUID 94.8 % (0.0-0.0); RBC,BODY FLUID 10000 /uL (0-0)
[2025-01-11 04:38] VITALS: PULSE 84
[2025-01-11] MEDS: Sennosides/Docusate Sodium 50-8.6 MG Tab PO PRN (05:21)
[2025-01-11] MEDS: VANCOmycin 1.5 GM/300 ML 1.5 GM in Premix Bag 1 BAG IV SCH (09:09)
[2025-01-11 09:12] VITALS: BP 136/59
[2025-01-11 09:44] LABS: BASOPHILS ABSOLUTE AUTO 0.1 K/mm3 (0.0-0.2); BASOPHILS PERCENT AUTO 0.5 % (0.0-1.0); EOSINOPHILS ABSOLUTE AUTO 0.3 K/mm3 (0.0-0.4); EOSINOPHILS PERCENT AUTO 1.9 % (0.0-6.0); HEMATOCRIT 33.4 % (37.0-47.0); HEMOGLOBIN 11.2 gm/dl (12.0-16.0); IMMATURE GRAN ABSOLUTE AUTO 1.16 K/mm3 (0.00-0.05); IMMATURE GRAN PERCENT AUTO 6.8 % (0.0-0.4); LYMPHOCYTES ABSOLUTE AUTO 1.1 K/mm3 (1.0-4.8); LYMPHOCYTES PERCENT AUTO 6.3 % (24.0-44.0); MEAN CORPUSCULAR HEMOGLOBIN 29.5 pg (28.0-32.0); MEAN CORPUSCULAR HGB CONC 33.5 g/dl (32.0-36.0); MEAN CORPUSCULAR VOLUME 87.9 fl (83.0-99.0); MEAN PLATELET VOLUME 9.4 fl (9.4-12.3); MONOCYTES ABSOLUTE AUTO 1.5 K/mm3 (0.0-0.8); MONOCYTES PERCENT AUTO 8.7 % (0.0-8.0); NEUTROPHILS PERCENT AUTO 75.8 % (41.0-71.0); PLATELET COUNT,PLT 513 K/mm3 (150-400); WHITE BLOOD CELL COUNT,WBC 17.09 K/mm3 (3.9-11.3)
[2025-01-11] MEDS: Piperacillin/Tazobactam 4.5 GM in Sodium Chloride 0.9% 100 ML IV ONE (10:04)
[2025-01-11 10:09] LABS: ANION GAP 13.3 (5-15); BUN/CREATININE RATIO 20.7 (14-18); C-REACTIVE PROTEIN 24.34 mg/dL (<0.30); CALCIUM 9.6 mg/dL (8.5-10.1); CREATININE 1.5 mg/dL (0.55-1.02); EST CRCL DRUG DOSING (CG) 28.78 mL/min; MAGNESIUM 1.7 mg/dL (1.8-2.4); POTASSIUM,K 4.3 mEq/L (3.5-5.1)
[2025-01-11 10:10] LABS: SLIDE REVIEW ABNORMAL SMEAR
[2025-01-11] MEDS: Magnesium Sulf/Wat 2 GM/50 mL 2 GM in Premix Bag 1 BAG IV ONE (11:52)
[2025-01-11] MEDS: predniSONE 20 MG Tab PO ONE (11:55)
[2025-01-11] MEDS: Sodium Chloride 0.9% 1,000 ML IV SCH (12:00)
[2025-01-13] MEDS ORDERED: Apixaban 5 MG Tab PO SCH (09:00)
== END 2025-01-11 14:18 | disposition critical access hospital (66) | DRG 948 ==
LOC: UNDOADMIN 14:53 → JD.MS 14:53
PROVIDERS: ADMIT Family Medicine; ATTEND Internal Medicine
DX: R52 Pain, unspecified (principal); I82.442 Acute embolism and thrombosis of left tibial vein; J31.0 Chronic rhinitis; H54.7 Unspecified visual loss; J32.9 Chronic sinusitis, unspecified; Z68.36 Body mass index [BMI] 36.0-36.9, adult; E83.42 Hypomagnesemia; E83.39 Other disorders of phosphorus metabolism; E87.6 Hypokalemia; I10 Essential (primary) hypertension; R79.89 Other specified abnormal findings of blood chemistry; M19.90 Unspecified osteoarthritis, unspecified site; R26.2 Difficulty in walking, not elsewhere classified; E03.9 Hypothyroidism, unspecified; E66.9 Obesity, unspecified; Z86.16 Personal history of COVID-19; Z98.49 Cataract extraction status, unspecified eye; Z79.82 Long term (current) use of aspirin; Z86.718 Personal history of other venous thrombosis and embolism; Z79.899 Other long term (current) drug therapy; Z88.2 Allergy status to sulfonamides; Z90.49 Acquired absence of other specified parts of digestive tract; Z88.8 Allergy status to other drugs, medicaments and biological substances; Z98.890 Other specified postprocedural states; Z96.649 Presence of unspecified artificial hip joint; Z96.659 Presence of unspecified artificial knee joint
CPT/HCPCS: 36415; 73700-26-LT; 73700-LT; 80048; 80053; 83735; 84157; 84550; 85025; 85652; 86140; 87040; 87070; 87205; 89050; 89060; 94761; 97110-GP; 97112-GP; 97116-GP; 97162-GP; A9270-GY; J1171; J3372; J3475; J7030; J7512

== ENCOUNTER 2025-01-11 13:11 | Inpatient (IN) | payer MEDICARE, BC ==
[2025-01-11] MEDS ORDERED: Polyethylene Glycol 3350 Powder 17 GM Packet PO PRN (13:30)
[2025-01-11] MEDS ORDERED: Docusate Sodium 100 MG Cap PO PRN (13:30)
[2025-01-11] MEDS ORDERED: HYDROmorphone 0.5 MG/0.5 ML Syringe IVPUSH PRN (13:30)
[2025-01-11] MEDS ORDERED: Ondansetron 4 MG/2 ML SDV IV PRN (13:30)
[2025-01-11] MEDS ORDERED: Sodium Chloride 0.9% 1,000 ML IV SCH (13:45)
[2025-01-11] MEDS ORDERED: Acetaminophen 325 MG Tab PO SCH (15:00)
[2025-01-11] MEDS: Diclofenac Sodium 1% Gel 100 GM Tube TOP SCH (15:02)
[2025-01-11] MEDS: Gabapentin 100 MG Cap PO SCH (15:03)
[2025-01-11] MEDS: HYDROmorphone 0.5 MG/0.5 ML Syringe IVPUSH PRN (16:12)
[2025-01-11] MEDS: Apixaban 5 MG Tab PO SCH (20:44)
[2025-01-12 04:27] LABS: BASOPHILS ABSOLUTE AUTO 0.1 K/mm3 (0.0-0.2); BASOPHILS PERCENT AUTO 0.4 % (0.0-1.0); EOSINOPHILS PERCENT AUTO 0.2 % (0.0-6.0); HEMATOCRIT 29.6 % (37.0-47.0); HEMOGLOBIN 9.8 gm/dl (12.0-16.0); IMMATURE GRAN ABSOLUTE AUTO 0.37 K/mm3 (0.00-0.05); IMMATURE GRAN PERCENT AUTO 3.1 % (0.0-0.4); LYMPHOCYTES ABSOLUTE AUTO 0.6 K/mm3 (1.0-4.8); LYMPHOCYTES PERCENT AUTO 5.1 % (24.0-44.0); MEAN CORPUSCULAR HEMOGLOBIN 28.9 pg (28.0-32.0); MEAN CORPUSCULAR HGB CONC 33.1 g/dl (32.0-36.0); MEAN CORPUSCULAR VOLUME 87.3 fl (83.0-99.0); MEAN PLATELET VOLUME 9.4 fl (9.4-12.3); MONOCYTES ABSOLUTE AUTO 0.7 K/mm3 (0.0-0.8); MONOCYTES PERCENT AUTO 5.7 % (0.0-8.0); NEUTROPHILS ABSOLUTE AUTO 10.1 K/mm3 (1.8-7.7); NEUTROPHILS PERCENT AUTO 85.5 % (41.0-71.0); PLATELET COUNT,PLT 509 K/mm3 (150-400); RED BLOOD CELL COUNT 3.39 M/mm3 (4.10-5.30); WHITE BLOOD CELL COUNT,WBC 11.77 K/mm3 (3.9-11.3)
[2025-01-12 05:11] LABS: A/G RATIO 0.4 (1-2); ALBUMIN 1.6 g/dl (3.4-5.0); ANION GAP 12.6 (5-15); BILIRUBIN TOTAL 0.7 mg/dL (0.2-1.0); C-REACTIVE PROTEIN 16.76 mg/dL (<0.30); CALCIUM 9.4 mg/dL (8.5-10.1); EST CRCL DRUG DOSING (CG) 43.18 mL/min; MAGNESIUM 2.1 mg/dL (1.8-2.4); POTASSIUM,K 4.6 mEq/L (3.5-5.1); VANCOMYCIN RANDOM 9.6 ug/mL
[2025-01-12] MEDS: Pantoprazole 40 MG Tab.CR PO SCH (06:10)
[2025-01-12] MEDS: Levothyroxine 75 MCG Tab PO SCH (08:10)
[2025-01-12] MEDS: Losartan 100 MG Tab PO SCH (08:11)
[2025-01-12] MEDS: predniSONE 20 MG Tab PO ONE (08:11)
[2025-01-12] MEDS: Furosemide 20 MG Tab PO SCH (08:11)
[2025-01-12] MEDS: Aspirin 81 MG Tab.Chew PO SCH (08:11)
[2025-01-12] MEDS: Cholecalciferol (Vitamin D3) 5,000 UNIT Cap PO SCH (08:11)
[2025-01-12] MEDS: Magnesium Oxide 400 MG Tab PO SCH (08:11)
[2025-01-12] MEDS: VANCOmycin 1.25 GM/250 ML 1.25 GM in Premix Bag 1 BAG IV SCH (08:12)
[2025-01-12] MEDS: oxyCODONE 5 MG Tab PO PRN (10:26)
[2025-01-12] MEDS: Acetaminophen 325 MG Tab PO PRN (21:14)
[2025-01-12] MEDS: HYDROmorphone 1 MG/ML Syringe IVPUSH ONE (22:08)
[2025-01-12] MEDS: Cyclobenzaprine 10 MG Tab PO PRN (23:01)
[2025-01-13 04:40] LABS: BASOPHILS ABSOLUTE AUTO 0.1 K/mm3 (0.0-0.2); BASOPHILS PERCENT AUTO 0.7 % (0.0-1.0); EOSINOPHILS ABSOLUTE AUTO 0.2 K/mm3 (0.0-0.4); EOSINOPHILS PERCENT AUTO 1.3 % (0.0-6.0); HEMATOCRIT 30.5 % (37.0-47.0); HEMOGLOBIN 10.1 gm/dl (12.0-16.0); IMMATURE GRAN ABSOLUTE AUTO 0.29 K/mm3 (0.00-0.05); IMMATURE GRAN PERCENT AUTO 2.1 % (0.0-0.4); LYMPHOCYTES ABSOLUTE AUTO 1.9 K/mm3 (1.0-4.8); LYMPHOCYTES PERCENT AUTO 14.2 % (24.0-44.0); MEAN CORPUSCULAR HEMOGLOBIN 28.9 pg (28.0-32.0); MEAN CORPUSCULAR HGB CONC 33.1 g/dl (32.0-36.0); MEAN CORPUSCULAR VOLUME 87.1 fl (83.0-99.0); MEAN PLATELET VOLUME 9.4 fl (9.4-12.3); MONOCYTES ABSOLUTE AUTO 1.1 K/mm3 (0.0-0.8); MONOCYTES PERCENT AUTO 8.1 % (0.0-8.0); NEUTROPHILS PERCENT AUTO 73.6 % (41.0-71.0); PLATELET COUNT,PLT 561 K/mm3 (150-400); WHITE BLOOD CELL COUNT,WBC 13.53 K/mm3 (3.9-11.3)
[2025-01-13 05:32] LABS: A/G RATIO 0.4 (1-2); ANION GAP 12.9 (5-15); BILIRUBIN TOTAL 0.6 mg/dL (0.2-1.0); BUN/CREATININE RATIO 28.9 (14-18); C-REACTIVE PROTEIN 10.09 mg/dL (<0.30); CALCIUM 10.1 mg/dL (8.5-10.1); CREATININE 0.9 mg/dL (0.55-1.02); EST CRCL DRUG DOSING (CG) 47.97 mL/min; MAGNESIUM 1.8 mg/dL (1.8-2.4); POTASSIUM,K 3.9 mEq/L (3.5-5.1); PROTEIN TOTAL,TP 6.8 g/dl (6.4-8.2)
[2025-01-13] MEDS: Apixaban 5 MG Tab PO SCH (08:12)
[2025-01-13] MEDS: predniSONE 20 MG Tab PO SCH (08:12)
[2025-01-13] MEDS: Diclofenac Sodium 1% Gel 100 GM Tube TOP PRN (16:05)
[2025-01-14 04:46] LABS: BASOPHILS ABSOLUTE AUTO 0.1 K/mm3 (0.0-0.2); BASOPHILS PERCENT AUTO 1.1 % (0.0-1.0); EOSINOPHILS ABSOLUTE AUTO 0.2 K/mm3 (0.0-0.4); EOSINOPHILS PERCENT AUTO 1.8 % (0.0-6.0); HEMATOCRIT 30.5 % (37.0-47.0); HEMOGLOBIN 10.1 gm/dl (12.0-16.0); IMMATURE GRAN ABSOLUTE AUTO 0.14 K/mm3 (0.00-0.05); IMMATURE GRAN PERCENT AUTO 1.4 % (0.0-0.4); LYMPHOCYTES ABSOLUTE AUTO 2.1 K/mm3 (1.0-4.8); LYMPHOCYTES PERCENT AUTO 21.1 % (24.0-44.0); MEAN CORPUSCULAR HEMOGLOBIN 29.1 pg (28.0-32.0); MEAN CORPUSCULAR HGB CONC 33.1 g/dl (32.0-36.0); MEAN CORPUSCULAR VOLUME 87.9 fl (83.0-99.0); MEAN PLATELET VOLUME 9.1 fl (9.4-12.3); MONOCYTES PERCENT AUTO 9.9 % (0.0-8.0); NEUTROPHILS ABSOLUTE AUTO 6.4 K/mm3 (1.8-7.7); NEUTROPHILS PERCENT AUTO 64.7 % (41.0-71.0); PLATELET COUNT,PLT 550 K/mm3 (150-400); RED BLOOD CELL COUNT 3.47 M/mm3 (4.10-5.30); WHITE BLOOD CELL COUNT,WBC 9.89 K/mm3 (3.9-11.3)
[2025-01-14 05:16] LABS: A/G RATIO 0.5 (1-2); ANION GAP 13.9 (5-15); BILIRUBIN TOTAL 0.6 mg/dL (0.2-1.0); BUN/CREATININE RATIO 24.4 (14-18); C-REACTIVE PROTEIN 5.74 mg/dL (<0.30); CREATININE 0.9 mg/dL (0.55-1.02); EST CRCL DRUG DOSING (CG) 47.97 mL/min; MAGNESIUM 1.7 mg/dL (1.8-2.4); POTASSIUM,K 3.9 mEq/L (3.5-5.1); PROTEIN TOTAL,TP 6.4 g/dl (6.4-8.2)
[2025-01-14] MEDS: Magnesium Sulf/Wat 2 GM/50 mL 2 GM in Premix Bag 1 BAG IV ONE (07:55)
[2025-01-14 14:38] VITALS: BP 139/93; PULSE 86
== END 2025-01-14 14:20 | disposition home or self-care (01) | DRG 549 ==
LOC: JD.MS 13:30
PROVIDERS: ADMIT Internal Medicine; ATTEND Internal Medicine
DX: M00.9 Pyogenic arthritis, unspecified (principal); E87.1 Hypo-osmolality and hyponatremia; I82.442 Acute embolism and thrombosis of left tibial vein; N17.9 Acute kidney failure, unspecified; Z68.36 Body mass index [BMI] 36.0-36.9, adult; M19.012 Primary osteoarthritis, left shoulder; J30.9 Allergic rhinitis, unspecified; H54.7 Unspecified visual loss; J32.9 Chronic sinusitis, unspecified; I10 Essential (primary) hypertension; M06.9 Rheumatoid arthritis, unspecified; E03.9 Hypothyroidism, unspecified; R26.2 Difficulty in walking, not elsewhere classified; E83.42 Hypomagnesemia; T14.8XXA Other injury of unspecified body region, initial encounter; E87.8 Other disorders of electrolyte and fluid balance, not elsewhere classified; M11.262 Other chondrocalcinosis, left knee; R53.1 Weakness; E66.9 Obesity, unspecified; Z86.16 Personal history of COVID-19; Z98.49 Cataract extraction status, unspecified eye; Z86.718 Personal history of other venous thrombosis and embolism; Z79.82 Long term (current) use of aspirin; Z90.49 Acquired absence of other specified parts of digestive tract; Z79.899 Other long term (current) drug therapy; Z91.030 Bee allergy status; Z88.2 Allergy status to sulfonamides; Z88.8 Allergy status to other drugs, medicaments and biological substances; Z98.890 Other specified postprocedural states; Z96.649 Presence of unspecified artificial hip joint; Z96.659 Presence of unspecified artificial knee joint
CPT/HCPCS: 36415; 73020-26-LT; 73020-LT; 73030-26-LT; 73030-LT; 80053; 80202; 83735; 85025; 86140; 92610-GN; 94760; 94761; 97110-GP; 97116-GP; 97162-GP; 97530-GP; A9270-GY; J1171; J3372; J3475; J7512

== ENCOUNTER 2025-02-25 10:09 | Day surgery (SDC) | payer MEDICARE, BC ==
[2025-02-25] MEDS ORDERED: Sodium Chloride 0.9% 100 ML IV ONE (10:10)
[2025-02-25] MEDS: Lactated Ringers 1,000 ML IV SCH (10:30)
[2025-02-25] MEDS ORDERED: Propofol 200 MG/20 ML SDV ONE ×2 (10:47→11:00)
[2025-02-25] MEDS ORDERED: Sodium Chloride 0.9% 10 ML Syringe FLUSH PRN (10:47)
[2025-02-25] MEDS ORDERED: Ondansetron 4 MG/2 ML SDV IVPUSH PRN (11:10)
[2025-02-25] MEDS ORDERED: HYDROmorphone 0.5 MG/0.5 ML Syringe IVPUSH PRN (11:10)
[2025-02-25] MEDS ORDERED: fentaNYL 100 MCG/2 ML SDV IVPUSH PRN (11:10)
[2025-02-25] MEDS ORDERED: fentaNYL 100 MCG/2 ML SDV ONE (11:23)
[2025-02-25] MEDS ORDERED: ceFAZolin 2 GM Vial ONE (11:32)
[2025-02-25] MEDS: Bupivacaine 0.25% 10 ML SDV ONE (11:42)
[2025-02-25] MEDS: Lidocaine 1% 30 ML SDV ONE (11:42)
[2025-02-25 13:18] VITALS: BP 143/95; PULSE 73
[2025-02-25] MEDS ORDERED: Sodium Chloride 0.9% 10 ML Syringe FLUSH SCH (21:00)
== END 2025-02-25 12:45 | disposition home or self-care (01) ==
LOC: JD.SDS 10:09
PROVIDERS: ATTEND Orthopaedic Surgery
DX: T81.89XA Other complications of procedures, not elsewhere classified, initial encounter (principal); Z96.641 Presence of right artificial hip joint; I10 Essential (primary) hypertension; E03.9 Hypothyroidism, unspecified; Z79.890 Hormone replacement therapy; Z79.899 Other long term (current) drug therapy; Z88.2 Allergy status to sulfonamides; Z91.030 Bee allergy status; Z88.5 Allergy status to narcotic agent
CPT/HCPCS: 11042; J0665; J0690; J2003; J2704; J3010; J7120; 00400

== ENCOUNTER 2025-04-07 07:22 | Day surgery (SDC) | payer MEDICARE, BC ==
[~2025-04-07 07:22] MED LIST changes: +Propofol 200 MG/20 ML SDV ONE; -Tranexamic Acid 1,000 MG/10 ML Vial ONE; -VANCOmycin 1 GM SDV ONE
[2025-04-07] MEDS ORDERED: fentaNYL 100 MCG/2 ML SDV ONE (07:28)
[2025-04-07] MEDS ORDERED: Lidocaine 1% 4 ML ONE (07:28)
[2025-04-07] MEDS ORDERED: Propofol 200 MG/20 ML SDV ONE (07:28)
[2025-04-07] MEDS ORDERED: Midazolam 1 MG/ML 2 ML SDV ONE (07:28)
[2025-04-07] MEDS: Lactated Ringers 1,000 ML IV SCH (07:50)
[2025-04-07] MEDS ORDERED: Ondansetron 4 MG/2 ML SDV ONE (08:16)
[2025-04-07 10:03] VITALS: BP 111/68
[2025-04-07 10:52] VITALS: PULSE 78
== END 2025-04-07 10:45 | disposition home or self-care (01) ==
LOC: JD.SDS 07:22
PROVIDERS: ATTEND Orthopaedic Surgery
DX: T84.51XA Infection and inflammatory reaction due to internal right hip prosthesis, initial encounter (principal); M06.9 Rheumatoid arthritis, unspecified; I10 Essential (primary) hypertension; E07.9 Disorder of thyroid, unspecified; Z88.2 Allergy status to sulfonamides; Z88.8 Allergy status to other drugs, medicaments and biological substances; Z86.718 Personal history of other venous thrombosis and embolism; Z79.01 Long term (current) use of anticoagulants; Z79.890 Hormone replacement therapy; Z79.899 Other long term (current) drug therapy; Y83.1 Surgical operation with implant of artificial internal device as the cause of abnormal reaction of the patient, or of later complication, without mention of misadventure at the time of the procedure
CPT/HCPCS: 01210; J0690; J2003; J2250; J2405; J2704; J3010; J7120